=== PATIENT | female | born 1945 | race Caucasian/White ===

== ENCOUNTER 2018-08-24 06:46 | Inpatient (IN) | payer MEDICARE, BC ==
[2018-08-24] MEDS: ACETAMINOPHEN 500 MG TAB PO (08:04)
[2018-08-24] MEDS: DEXAMETHASONE 4 MG/ML 1 ML INJ IV (08:04)
[2018-08-24] MEDS: LACTATED RINGER'S 1,000 ML IV ×3 (08:14→18:57)
[2018-08-24] MEDS ORDERED: PROPOFOL 20 ML (10:38)
[2018-08-24] MEDS ORDERED: MIDAZOLAM 1 MG/ML 2 ML INJ (10:38)
[2018-08-24] MEDS ORDERED: EPHEDrine 25 MG/5 ML SYG (10:38)
[2018-08-24] MEDS ORDERED: CEFAZOLIN 1 GM INJ (10:38)
[2018-08-24] MEDS: CEFAZOLIN 2 GM/50 ML (PMX) 50 ML (FOR WT < 120 KG) IVPB (11:08)
[2018-08-24] MEDS ORDERED: TRANEXAMIC ACID 1GM/100ML(PMX) 100 ML ×2 (11:41→12:09)
[2018-08-24] MEDS ORDERED: DEXAMETHASONE 4 MG/ML 5 ML INJ (11:41)
[2018-08-24] MEDS: BACITRACIN 50000 UNITS INJ (11:48)
[2018-08-24] MEDS: POLYMYXIN B 500000 UNIT INJ (11:51)
[2018-08-24] MEDS: TRANEXAMIC ACID 1GM/100ML(PMX) 100 ML AT INCISION X1 IVPB (11:52)
[2018-08-24] MEDS ORDERED: KETOROLAC 30 MG INJ (11:53)
[2018-08-24] MEDS ORDERED: ONDANSETRON 4 MG INJ (11:53)
[2018-08-24] MEDS: TRANEXAMIC ACID 1GM/100ML(PMX) 100 ML AT CLOSURE X1 IVPB ×2 (12:45)
[2018-08-24] MEDS ORDERED: ACETAMINOPHEN 500 MG TAB PO (13:00)
[2018-08-24] MEDS ORDERED: ONDANSETRON 4 MG INJ IV (13:00)
[2018-08-24] MEDS ORDERED: MAGNESIUM HYDROXIDE 30ML CUP PO (14:00)
[2018-08-24] MEDS ORDERED: NALOXONE (0.4 MG/ML) INJ IV (14:00)
[2018-08-24] MEDS ORDERED: BISACODYL 10 MG SUPP PR (14:00)
[2018-08-24] MEDS ORDERED: NACL 0.9% 3 ML SYG IV (14:00)
[2018-08-24] MEDS ORDERED: oxyCODONE 5 MG TAB PO ×2 (14:00)
[2018-08-24] MEDS ORDERED: KETOROLAC 15 MG INJ IV (14:00)
[2018-08-24] MEDS: CEFAZOLIN 2 GM/50 ML (PMX) 50 ML IVPB ×2 (15:09→22:24)
[2018-08-24] MEDS: oxyCODONE 5 MG TAB PO (18:58)
[2018-08-24] MEDS: GABAPENTIN 100 MG CAP PO (20:57)
[2018-08-24] MEDS: MELOXICAM 7.5 MG TAB PO (20:57)
[2018-08-24] MEDS ORDERED: GABAPENTIN 100 MG CAP PO (21:00)
[2018-08-24] MEDS: CYCLOSPORINE 0.05% OPH DROPERETTE BOTH EYES (22:24)
[2018-08-25] MEDS: LEVOTHYROXINE 100 MCG TAB PO (04:46)
[2018-08-25 05:11] LABS: WHITE BLOOD COUNT 8.9 10^3/ul (4.8-10.8)
[2018-08-25 05:11] LABS: ABNORMAL IP MESSAGE 1; ADD MAN DIFF? NO; BASOPHILS % 0.3 % (0.0-2.0); HEMATOCRIT 30.9 % (37.0-47.0); LYMPHOCYTES # 0.6 10^3/ul (0.8-2.9); LYMPHOCYTES % 6.6 % (15.0-51.0); MEAN CORPUSCULAR HEMOGLOBIN 29.8 pg (29.0-33.0); MEAN CORPUSCULAR HGB CONC 32.4 g/dl (32.0-37.0); MEAN PLATELET VOLUME 9.7 fl (7.4-10.4); MONOCYTE # 0.7 10^3/ul (0.3-0.9); NEUTROPHIL # 7.5 10^3/ul (1.6-7.5); NEUTROPHILS % 84.8 % (39.0-77.0); PLATELET COUNT 185 10^3/UL (140-415); RED BLOOD COUNT 3.36 10^6/ul (4.20-5.40); RED CELL DISTRIBUTION WIDTH 13.5 % (11.5-14.5)
[2018-08-25 05:13] LABS: POSITIVE DIFF @See below
[2018-08-25 05:43] LABS: ANION GAP 3 (5-13); BLOOD UREA NITROGEN 28 mg/dl (7-20); CALCIUM 9.8 mg/dl (8.4-10.2); CARBON DIOXIDE 30 mmol/L (21-31); CHLORIDE 108 mmol/L (97-110); CREATININE 0.72 mg/dl (0.44-1.00); GLUCOSE 112 mg/dl (70-220); POTASSIUM 5.4 mmol/L (3.5-5.1); SODIUM 141 mmol/L (135-144)
[2018-08-25] MEDS: PANTOPRAZOLE (EC) 40 MG TAB PO (06:22)
[2018-08-25] MEDS: CEFAZOLIN 2 GM/50 ML (PMX) 50 ML IVPB (06:22)
[2018-08-25] MEDS ORDERED: LEVOTHYROXINE 100 MCG TAB PO (07:00)
[2018-08-25] MEDS: CYCLOSPORINE 0.05% OPH DROPERETTE BOTH EYES (09:21)
[2018-08-25] MEDS: KETOROLAC 30 MG INJ IV (09:21)
[2018-08-25] MEDS: MELOXICAM 7.5 MG TAB PO (09:22)
[2018-08-25] MEDS: CHOLECALCIFEROL 1,000 UNIT TAB PO (09:22)
[2018-08-25] MEDS: LIOTHYRONINE 5 MCG TAB PO (09:22)
[2018-08-25] MEDS: ASPIRIN (EC) 81 MG TAB PO (09:23)
[2018-08-25] MEDS: LOSARTAN 50 MG TAB PO (09:23)
[2018-08-25] MEDS: CELECOXIB 100 MG CAP PO (09:23)
[2018-08-25] MEDS: ASCORBIC ACID 500 MG TAB PO (09:24)
[2018-08-25] MEDS: DOCUSATE SODIUM 100 MG CAP PO (09:24)
[2018-08-25] MEDS: AMLODIPINE 10 MG TAB PO (09:24)
[2018-08-25] MEDS: GABAPENTIN 100 MG CAP PO ×2 (09:25→13:31)
[2018-08-25] MEDS: NA POLYST SULFON 15 GM/60 ML BTL PO (13:29)
[2018-08-25] MEDS: SODIUM POLYSTYRENE 15 GM KIT (POWDER + SORBITOL) PO (13:29)
[2018-08-25] MEDS ORDERED: ONDANSETRON 4 MG INJ IV (14:00)
== END 2018-08-25 14:59 | disposition home health service (06) | DRG 468 ==
LOC: REC 06:46 → MS1 15:30
PROC: 0SRB06A Replacement of Left Hip Joint with Oxidized Zirconium on Polyethylene Synthetic Substitute, Uncemented, Open Approach (ICD-10-PCS; principal; 2018-08-24 10:00)
PROC: 0SPB0JZ Removal of Synthetic Substitute from Left Hip Joint, Open Approach (ICD-10-PCS; 2018-08-24 10:00)
DX: T84.031A Mechanical loosening of internal left hip prosthetic joint, initial encounter (principal); E03.9 Hypothyroidism, unspecified; I10 Essential (primary) hypertension
CPT/HCPCS: 73530; 80048; 85025; 86850; 86900; 86901; 87081; 88304; 97116; 97161; 97165; 97530